=== PATIENT | male | born 1965 | race Two or more races ===

== ENCOUNTER 2021-04-21 18:12 | Emergency (ER) | payer OTHER ==
[~2021-04-21] VITALS: Ht 175.3 cm; Wt 113.4 kg
--- NOTE | 2021-04-21 18:13 | NUR ---
TO ER BED 2, C/O PERSISTENT HICCUPS THE LAST 30 HRS, AWAITING MD MERINO
[2021-04-21] MEDS ORDERED: PANTOPRAZOLE 40 MG VIAL ONE (18:43)
[2021-04-21] MEDS ORDERED: METOCLOPRAMIDE HCL 10 MG/2 ML VIAL ONE (18:44)
--- NOTE | 2021-04-21 18:55 | NUR ---
SALINE LOCK ESTABLISHED, BLOOD DRAWN AND SENT TO LAB
[2021-04-21] MEDS ORDERED: IV NS 0.9% 1,000 ML BAG IV ONE (19:00)
[2021-04-21] MEDS ORDERED: PANTOPRAZOLE 40 MG VIAL IV ONE (19:00)
[2021-04-21] MEDS ORDERED: METOCLOPRAMIDE HCL 10 MG/2 ML VIAL IV ONE (19:00)
[2021-04-21 19:01] LABS: BASOPHILS % (AUTO) 0.3 % (0.0-2.0); EOSINOPHILS % (AUTO) 2.4 % (0.0-6.0); HEMATOCRIT 45 % (39-51); HEMOGLOBIN 14.9 g/dL (13.5-17.5); LYMPHOCYTES # (AUTO) 1.1 K/uL (0.8-4.8); LYMPHOCYTES % (AUTO) 16.7 % (20.0-44.0); MEAN CORPUSCULAR HGB CONC 33 g/dl (31.0-36.0); MEAN CORPUSCULAR VOLUME 92 fL (80-96); MONOCYTES # (AUTO) 0.8 K/uL (0.1-1.30); MONOCYTES % (AUTO) 12.1 % (2.0-12.0); NEUTROPHILS # (AUTO) 4.7 K/uL (1.8-8.9); NEUTROPHILS % (AUTO) 68.5 % (43.0-81.0); PLATELET COUNT (AUTO) 252 K/uL (150-450); RED BLOOD CELL COUNT(AUTO) 4.87 MIL/uL (4.5-6.0); WHITE BLOOD COUNT (AUTO) 6.8 K/uL (4.3-11.0)
--- NOTE | 2021-04-21 19:15 | NUR ---
REPORT GIVEN TO SANTOSH RN FOR RAUL
[2021-04-21 19:41] LABS: ALBUMIN 3.6 g/dL (3.4-5.0); BILIRUBIN,DIRECT 0.1 mg/dL (0.0-0.2); BILIRUBIN,TOTAL 0.2 mg/dL (0.2-1.0); CALCIUM, SERUM 7.9 mg/dL (8.5-10.1); CREATININE 1.1 mg/dL (0.6-1.3); POTASSIUM 3.5 mmol/L (3.5-5.1)
--- NOTE | 2021-04-21 19:45 | NUR ---
REC'D REPORT FROM DAY SHIFT RN, VSS AT THIS TIME. PT DENIES PAIN, N/V WILL CONT TO MONITOR
[2021-04-21] MEDS ORDERED: METO-295 PO (21:08)
--- NOTE | 2021-04-21 21:24 | NUR ---
Patient discharged to home in stable condition. Written and verbal after care instructions given. Patient verbalizes understanding of instruction. IV removed. Catheter intact and site benign. Pressure and 4x4 applied to site. No bleeding noted.
[2021-04-21 21:27] VITALS: BP 119/69
== END 2021-04-21 21:27 | disposition home or self-care (01) ==
LOC: ER 18:20
DX: R06.6 Hiccough (principal); R11.2 Nausea with vomiting, unspecified; R19.7 Diarrhea, unspecified; I10 Essential (primary) hypertension
CPT/HCPCS: 36415; 80048; 80076; 84484; 85025; 93005; 96361; 96374; 96375; 99284; C9113; J2765; J7030

== ENCOUNTER 2021-04-21 22:05 | Emergency (ER) | payer OTHER ==
[~2021-04-21] VITALS: Ht 175.3 cm; Wt 113.4 kg
[2021-04-21 22:05] VITALS: BP 120/78
[~2021-04-21 22:05] MED LIST: METO-295 PO
[2021-04-21] MEDS ORDERED: METOCLOPRAMIDE HCL 10 MG/2 ML VIAL IM ONE (23:00)
[2021-04-21] MEDS ORDERED: METOCLOPRAMIDE HCL 10 MG/2 ML VIAL ONE (23:03)
== END 2021-04-21 23:26 | disposition home or self-care (01) ==
LOC: ER 22:05
DX: R06.6 Hiccough (principal); R11.2 Nausea with vomiting, unspecified; R19.7 Diarrhea, unspecified; I10 Essential (primary) hypertension
CPT/HCPCS: 96372; 99283; J2765

== ENCOUNTER 2023-01-31 22:51 | Emergency (ER) | payer BC, OTHER ==
[~2023-01-31] VITALS: Ht 175.3 cm; Wt 104.3 kg
--- NOTE | 2023-01-31 23:47 | NUR ---
BIBS C/O NECK PAIN S/P PIECE OF WOOD FELL ON NECK AT 2100 TONIGHT P/S 02/08
--- NOTE | 2023-02-01 | NUR ---
PT TAKEN TO CT
[2023-02-01] MEDS ORDERED: IBUPROFEN 600 MG TABLET ONE ×2 (00:17→05:48)
[2023-02-01] MEDS ORDERED: ACETAMINOPHEN ES 500 MG TABLET ONE (00:17)
[2023-02-01] MEDS ORDERED: ACETAMINOPHEN ES 500 MG TABLET PO ONE (00:30)
[2023-02-01] MEDS ORDERED: IBUPROFEN 600 MG TABLET PO ONE ×2 (00:30→06:00)
--- NOTE | 2023-02-01 03:00 | NUR ---
CALLED [facility] FOR CT RESULTS. THEY STATED THEY HAVE NOT YET RECIEVED THE IMAGES. NOTIFIED RADIOLOGY DEPARTMENT
--- NOTE | 2023-02-01 04:00 | NUR ---
CALLED [facility] FOR CT RESULTS. STATED THAT THEY RECIEVED RESULTS "14 MINUTES AGO"
--- NOTE | 2023-02-01 05:00 | NUR ---
CALLED [facility] FOR CT RESULTS. THEY STATED THAT "THE RESULTS WILL BE READ IN 2.[address] BURNHAM AWARE.
[2023-02-01] MEDS ORDERED: IBUP-1953 PO (05:37)
--- NOTE | 2023-02-01 05:58 | NUR ---
PT REQUESTING TO LEAVE. DR. BURNHAM PROVIDED DISCHARGE PAPERWORK AND WORK NOTE WITH INSTRUCTIONS TO FOLLOW UP WITH [employer] AND THAT HE WILL RECIEVE CALL REGARDING CT RESULTS. PT DC'D IN STABLE CONDITION.
[2023-02-01 06:01] VITALS: BP 126/77
== END 2023-02-01 06:21 | disposition home or self-care (01) ==
LOC: ER 22:54
DX: S10.93XA Contusion of unspecified part of neck, initial encounter (principal); S09.90XA Unspecified injury of head, initial encounter; I10 Essential (primary) hypertension; Z79.1 Long term (current) use of non-steroidal anti-inflammatories (NSAID); Z79.899 Other long term (current) drug therapy; W18.39XA Other fall on same level, initial encounter; Y93.89 Activity, other specified; Y92.89 Other specified places as the place of occurrence of the external cause; Y99.8 Other external cause status
CPT/HCPCS: 70450-TC; 72125-TC